=== PATIENT | male | born 1985 | race Caucasian/White ===

== ENCOUNTER 2019-12-25 15:40 | Emergency (ER) | payer MEDICAID ==
[~2019-12-25] VITALS: Ht 185.4 cm; Wt 68.0 kg
[2019-12-25 16:11] VITALS: BP 130/80
== END 2019-12-25 17:11 | disposition home or self-care (01) ==
LOC: ER 15:42
DX: F10.239 Alcohol dependence with withdrawal, unspecified (principal); Z00.8 Encounter for other general examination; F15.90 Other stimulant use, unspecified, uncomplicated; F90.9 Attention-deficit hyperactivity disorder, unspecified type
CPT/HCPCS: 99281